=== PATIENT | female | born 1970 | race Caucasian/White ===

== ENCOUNTER 2019-10-09 08:51 | Emergency (ER) | payer MEDICAID, SELFPAY ==
[~2019-10-09] VITALS: Ht 160 cm; Wt 76.1 kg
[2019-10-09] MEDS ORDERED: ADENOSINE 6MG/2ML INJECTION (J0153) As Ordered ONE (09:16)
[2019-10-09] MEDS ORDERED: ADENOSINE 6MG/2ML INJECTION (J0153) IV STA (09:23)
[2019-10-09] MEDS ORDERED: NS 500 ML IV ONE (09:30)
[2019-10-09 09:33] LABS: BASO # 0.1 10^3/uL (0.0-0.2); BASO % 0.6 % (0.0-1.0); EOS # 0.3 10^3/uL (0.0-0.5); EOS % 2.3 % (0.0-3.0); HEMATOCRIT 44.5 % (36.0-47.0); HEMOGLOBIN 14.6 g/dl (12.0-15.5); LYMPH # 3.8 10^3/uL (1.5-5.0); LYMPH % 26.6 % (24.0-44.0); MEAN CORPUSCULAR HEMOGLOBIN 31.2 pg (27.0-33.0); MEAN CORPUSCULAR HGB CONC 32.8 g/dl (32.0-36.5); MEAN CORPUSCULAR VOLUME 95.1 fl (80.0-96.0); MONO % 6.7 % (0.0-5.0); NEUTROPHILS % 63.4 % (36.0-66.0); PLATELET COUNT, AUTOMATED 316 10^3/uL (150-450); RED BLOOD COUNT 4.68 10^6/uL (4.00-5.40); WHITE BLOOD COUNT 14.2 10^3/uL (4.0-10.0)
[2019-10-09 09:43] LABS: INR 0.91
[2019-10-09 09:44] LABS: PARTIAL THROMBOPLASTIN TIME 29.6 SECONDS (25.0-38.4)
[2019-10-09 09:56] LABS: BLOOD UREA NITROGEN 14 MG/DL (7-18); CALCIUM LEVEL 8.4 MG/DL (8.5-10.1); CARBON DIOXIDE LEVEL 22 MEQ/L (21-32); CHLORIDE LEVEL 111 MEQ/L (98-107); CK-MB VALUE MASS 1.4 NG/ML (<3.6); CPK CREATINE PHOSPHOKINASE 174 U/L (26-192); CREATININE FOR GFR 0.98 MG/DL (0.55-1.30); FREE T4 1.03 NG/DL (0.76-1.46); GLOMERULAR FILTRATION RATE > 60.0 (>51); GLUCOSE, FASTING 114 MG/DL (70-100); POTASSIUM SERUM 3.7 MEQ/L (3.5-5.1); SODIUM LEVEL 144 MEQ/L (136-145); TROPONIN I 0.02 NG/ML (< 0.10)
--- NOTE | 2019-10-09 10:16 | REP ---
AP PORTABLE CHEST: 10/09/2019. Clinical history: Chest pain. Tachycardia. Findings: There were no prior studies. The lungs are well inflated and clear. CP angles sharply defined without effusion. No cardiomegaly, vascular redistribution or pulmonary edema. The aorta is mildly tortuous, but normal for age. Airway midline. C5-C7 anterior cervical discectomy and fusion plate and screw device is noted. No free air under the diaphragm. Impression: 1. No acute cardiopulmonary change. Electronically Signed by Ravi Kim MD 10/09/2019 08:20 P
[2019-10-09 12:50] LABS: CK-MB VALUE MASS 1.6 NG/ML (<3.6); MB/CK RELATIVE INDEX 1.09 (< OR =4); TROPONIN I 0.2 NG/ML (< 0.10)
[2019-10-09 13:15] VITALS: BP 135/92
[2019-10-09] MEDS ORDERED: atenoloL 25 MG TAB PO ONE (13:15)
[2019-10-09] MEDS ORDERED: ASPIRIN 81 MG CHEW TABLET PO ONE (13:15)
[2019-10-09 15:14] LABS: CK-MB VALUE MASS 1.6 NG/ML (<3.6); MB/CK RELATIVE INDEX 1.13 (< OR =4); TROPONIN I 0.2 NG/ML (< 0.10)
[2019-10-09] MEDS ORDERED: ATEN25TA PO (15:29)
[2019-10-09] MEDS ORDERED: ASPI81TA85 PO (15:29)
[2019-10-09 15:38] VITALS: BP 132/92
--- NOTE | 2019-10-09 19:22 | ECGEPIP ---
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
--- NOTE | 2019-10-09 19:29 | ECGEPIP ---
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
--- NOTE | 2019-10-09 19:31 | ECGEPIP ---
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
== END 2019-10-09 15:45 | disposition home or self-care (01) ==
LOC: M ED 08:51
DX: I47.1 Supraventricular tachycardia (principal); R07.9 Chest pain, unspecified; F41.9 Anxiety disorder, unspecified; Z79.82 Long term (current) use of aspirin; Z79.899 Other long term (current) drug therapy; Z87.39 Personal history of other diseases of the musculoskeletal system and connective tissue
CPT/HCPCS: 36415; 71045; 80048; 82550; 82553; 84439; 84443; 85025; 85610; 85730; 93005; 93041; 94760; 96361; 96374; 99285; J0153

== ENCOUNTER → 2019-10-27 | Outpatient (CLI) | payer MEDICAID ==
[~2019-10-27] MED LIST: ASPI81TA85 PO; ATEN25TA PO
[2019-10-27 12:05] LABS: CHOLESTEROL RISK RATIO 3.194 (<5)
== END ==
LOC: M LRY 09:00
PROVIDERS: ATTEND Internal Medicine Cardiovascular Disease
DX: Z68.30 Body mass index [BMI] 30.0-30.9, adult (principal)

== ENCOUNTER → 2020-07-25 | Outpatient (CLI) | payer MEDICAID, OTHER ==
[~2020-07-25] MED LIST changes: -ASPI81TA85 PO; +ASPI81TA86 PO; +BENA25CA4 PO; +CLAR10CA3 PO; +IMIT50TA PO; +PREV15CA18 PO
== END ==
LOC: M LABSMTC 10:16
PROVIDERS: ATTEND Anesthesiology
DX: Z01.812 Encounter for preprocedural laboratory examination (principal); Z20.828 Contact with and (suspected) exposure to other viral communicable diseases

== ENCOUNTER 2020-07-30 09:48 | Day surgery (SDC) | payer OTHER ==
[~2020-07-30] VITALS: Ht 160 cm; Wt 58.5 kg
[~2020-07-30 09:48] MED LIST changes: +NS 1,000 ML IV ONE
[2020-07-30] MEDS ORDERED: propofoL 500 MG/50 ML VIAL As Ordered ONE ×2 (10:25→10:52)
[2020-07-30] MEDS ORDERED: LIDOCAINE 2% 100MG/5ML SDV (FOR ANES.) As Ordered ONE (10:25)
[2020-07-30] MEDS ORDERED: fentaNYL 100 MCG/2 ML INJECTION (J3010) As Ordered ONE (10:25)
--- NOTE | 2020-07-30 11:25 | ROOR ---
Patient Name: Dolores Mendez Procedure Date: 07/30/2020 10:21 AM Date of : 1970 Age: 50 Room: [facility] Gender: Female Note Status: Finalized Procedure: Upper GI endoscopy Indications: Heartburn, Suspected gastro-esophageal reflux disease Providers: George Roy MD Referring MD: Cris Payne Md Requesting Provider: Medicines: Monitored Anesthesia Care Complications: No immediate complications. Procedure: Pre-Anesthesia Assessment: - Prior to the procedure, a History and Physical was performed, and patient medications and allergies were reviewed. The patient is competent. The risks and benefits of the procedure and the sedation options and risks were discussed with the patient. All questions were answered and informed consent was obtained. Patient identification and proposed procedure were verified by the physician, the nurse and the anesthesiologist in the procedure room. Mental Status Examination: alert and oriented. Airway Examination: normal oropharyngeal airway and neck mobility. Respiratory Examination: clear to auscultation. CV Examination: normal. Prophylactic Antibiotics: The patient does not require prophylactic antibiotics. Prior Anticoagulants: The patient has taken no previous anticoagulant or antiplatelet agents. ASA Grade Assessment: II - A patient with mild systemic disease. After reviewing the risks and benefits, the patient was deemed in satisfactory condition to undergo the procedure. The anesthesia plan was to use monitored anesthesia care (MAC). Immediately prior to administration of medications, the patient was re-assessed for adequacy to receive sedatives. The heart rate, respiratory rate, oxygen saturations, blood pressure, adequacy of pulmonary ventilation, and response to care were monitored throughout the procedure. The physical status of the patient was re-assessed after the procedure. The Endoscope was introduced through the mouth, and advanced to the second part of duodenum. The upper GI endoscopy was accomplished without difficulty. The patient tolerated the procedure well. Findings: LA Grade A (one or more mucosal breaks less than 5 mm, not extending between tops of 2 mucosal folds) esophagitis with no bleeding was found in the distal esophagus. Biopsies were taken with a cold forceps for histology. Verification of patient identification for the specimen was done by the physician and nurse using the patient's name, date and medical record number. Estimated blood loss was minimal. The Z-line was regular and was found 37 cm from the incisors. Scattered mild inflammation characterized by erythema and granularity was found in the gastric body and in the gastric antrum. Biopsies were taken with a cold forceps for histology. The duodenal bulb and second portion of the duodenum were normal. Impression: - LA Grade A reflux esophagitis. Biopsied. - Z-line regular, 37 cm from the incisors. - Gastritis. Biopsied. - Normal duodenal bulb and second portion of the duodenum. Recommendation: - Patient has a contact number available for emergencies. The signs and symptoms of potential delayed complications were discussed with the patient. Return to normal activities tomorrow. Written discharge instructions were provided to the patient. - High fiber diet. - Continue present medications. - Await pathology results. - Follow an antireflux regimen. - Telephone GI clinic for pathology results in 2 weeks. - Return to primary care physician. George Roy MD George Roy MD 07/30/2020 11:24:37 AM Electronically signed by George Roy MD Number of Addenda: 0 Note Initiated On: 07/30/2020 10:21 AM Estimated Blood Loss: Estimated blood loss was minimal.
--- NOTE | 2020-07-30 11:42 | ROOR ---
Patient Name: Dolores Mendez Procedure Date: 07/30/2020 10:22 AM Date of : 1970 Age: 50 Room: [facility] Gender: Female Note Status: Finalized Procedure: Colonoscopy Indications: Screening for colorectal malignant neoplasm, Screening in patient at increased risk: Family history of 1st-degree relative with colorectal cancer Providers: George Roy MD Referring MD: Cris Payne Md Requesting Provider: Medicines: Monitored Anesthesia Care Complications: No immediate complications. Procedure: Pre-Anesthesia Assessment: - Prior to the procedure, a History and Physical was performed, and patient medications and allergies were reviewed. The patient is competent. The risks and benefits of the procedure and the sedation options and risks were discussed with the patient. All questions were answered and informed consent was obtained. Patient identification and proposed procedure were verified by the physician, the nurse and the anesthesiologist in the procedure room. Mental Status Examination: alert and oriented. Airway Examination: normal oropharyngeal airway and neck mobility. Respiratory Examination: clear to auscultation. CV Examination: normal. Prophylactic Antibiotics: The patient does not require prophylactic antibiotics. Prior Anticoagulants: The patient has taken no previous anticoagulant or antiplatelet agents. ASA Grade Assessment: II - A patient with mild systemic disease. After reviewing the risks and benefits, the patient was deemed in satisfactory condition to undergo the procedure. The anesthesia plan was to use monitored anesthesia care (MAC). Immediately prior to administration of medications, the patient was re-assessed for adequacy to receive sedatives. The heart rate, respiratory rate, oxygen saturations, blood pressure, adequacy of pulmonary ventilation, and response to care were monitored throughout the procedure. The physical status of the patient was re-assessed after the procedure. The Colonoscope was introduced through the anus and advanced to the terminal ileum, with identification of the appendiceal orifice and IC valve. The colonoscopy was performed without difficulty. The patient tolerated the procedure well. The quality of the bowel preparation was good. The terminal ileum, ileocecal valve, appendiceal orifice, and rectum were photographed. Scope insertion time was 3 minutes. Scope withdrawal time was 9 minutes. The total duration of the procedure was 12 minutes. Findings: The perianal and digital rectal examinations were normal. The terminal ileum appeared normal. A 10 mm polyp was found in the descending colon. The polyp was sessile. The polyp was removed with a cold snare. Resection and retrieval were complete. Verification of patient identification for the specimen was done by the physician and nurse using the patient's name, date and medical record number. Estimated blood loss was minimal. Non-bleeding external and internal hemorrhoids were found during retroflexion. The hemorrhoids were small. Impression: - The examined portion of the ileum was normal. - One 10 mm polyp in the descending colon, removed with a cold snare. Resected and retrieved. - Non-bleeding external and internal hemorrhoids. Recommendation: - Patient has a contact number available for emergencies. The signs and symptoms of potential delayed complications were discussed with the patient. Return to normal activities tomorrow. Written discharge instructions were provided to the patient. - High fiber diet. - Continue present medications. - Await pathology results. - Repeat colonoscopy in 3 - 5 years for surveillance based on pathology results and due to family history of colon cancer. - Telephone GI clinic for pathology results in 2 weeks. - Return to primary care physician. George Roy MD George Roy MD 07/30/2020 11:41:30 AM Electronically signed by George Roy MD Number of Addenda: 0 Note Initiated On: 07/30/2020 10:22 AM Estimated Blood Loss: Estimated blood loss was minimal.
[2020-07-30 11:45] VITALS: BP 129/90
[2020-07-30] MEDS ORDERED: SIMETHICONE 40MG/0.6ML DROPS 30ML As Ordered ONE ×2 (15:17→15:18)
== END 2020-07-30 11:49 | disposition home or self-care (01) ==
LOC: M OPP 09:48
PROVIDERS: ATTEND Internal Medicine Gastroenterology
DX: Z12.11 Encounter for screening for malignant neoplasm of colon (principal); Z80.0 Family history of malignant neoplasm of digestive organs; K64.8 Other hemorrhoids; K63.5 Polyp of colon; K21.00 Gastro-esophageal reflux disease with esophagitis, without bleeding; K29.70 Gastritis, unspecified, without bleeding; R12 Heartburn; F17.210 Nicotine dependence, cigarettes, uncomplicated; Z79.899 Other long term (current) drug therapy; Z91.012 Allergy to eggs; Z91.018 Allergy to other foods
CPT/HCPCS: 43239; 45385; 88305; J3010

== ENCOUNTER → 2021-03-13 | Outpatient (CLI) | payer MEDICAID, OTHER ==
[~2021-03-13] MED LIST changes: -NS 1,000 ML IV ONE; -PREV15CA18 PO; +PREV15CA24 PO
[2021-03-13 11:47] LABS: HEMATOCRIT 42.9 % (36.0-47.0); HEMOGLOBIN 14.1 g/dl (12.0-15.5); MEAN CORPUSCULAR HEMOGLOBIN 31.9 pg (27.0-33.0); MEAN CORPUSCULAR HGB CONC 32.9 g/dl (32.0-36.5); MEAN CORPUSCULAR VOLUME 97.1 fl (80.0-96.0); PLATELET COUNT, AUTOMATED 278 10^3/uL (150-450); RED BLOOD COUNT 4.42 10^6/uL (4.00-5.40); WHITE BLOOD COUNT 8.4 10^3/uL (4.0-10.0)
== END ==
LOC: M LAB 11:17
PROVIDERS: ATTEND Physician Assistant Medical
DX: R19.7 Diarrhea, unspecified (principal)

== ENCOUNTER → 2021-03-19 | Outpatient (REF) | payer OTHER | LOC: M LAB REF 09:23 | PROVIDERS: ATTEND Physician Assistant Medical | DX: R19.7 Diarrhea, unspecified (principal) ==

== ENCOUNTER → 2021-04-05 | Outpatient (CLI) | payer OTHER ==
[~2021-04-05] MED LIST changes: +GLUCAGON INJ 1MG VIAL As Ordered ONE; +ISOVUE-370 76% 100ML VIAL As Ordered ONE; +NEULUMEX 0.1% SUSPENSION 450ML BOTTLE (FORMERLY VOLUMEN) As Ordered ONE
--- NOTE | 2021-04-05 13:20 | REP ---
INDICATION: LOWER ABDOMINAL PAIN, DIARRHEA. COMPARISON: None. TECHNIQUE: Protocol with dilute oral contrast Volumen totaling 1350 mL over 3 doses, glucagon 0.6 mg IV and finding Isovue 371 mL scanning through the abdomen and pelvis with delayed images. Coronal and sagittal standard and MIP reformats in arterial and venous phases provided FINDINGS: CT abdomen pelvis: Lung bases are clear. Heart is not enlarged there is no pericardial thickening or effusion. Small hiatal hernia suggested. Stomach filled with the contrast but oral contrast also seen throughout the small bowel loops and colon as far as the rectosigmoid. Liver size borderline with vertical diameter nearly 18 cm midclavicular line. No focal hepatic mass or biliary dilatation. Gallbladder partially contracted without calcified stone visible. Spleen is not enlarged and shows no adjacent fluid or mass within. The adrenal glands are normal. Kidneys show symmetric enhancement without mass, stone or hydronephrosis. There is no hydroureter or ureteral stone on either side. The aorta is without aneurysm or dissection. No periaortic, other retroperitoneal or mesenteric pathologic sized lymphadenopathy. Stool and fluid fill the right colon without inflammatory change. There is gas and bowel content across both flexures and transverse colon into the left colon with the fluid and air-fluid levels but no dilatation. Small bowel loops show no bowel wall thickening of the proximal to terminal ileum. No adjacent inflammatory changes pericecal fat nor pericecal adenopathy. Appendix is seen and is normal. Jejunum shows mid to distal loops unremarkable. There is nonspecific mild wall thickening proximal jejunal bowel wall without adjacent inflammatory change or mesenteric edema. This is a nonspecific finding. The bone windows show lumbar and lower thoracic spine and their posterior elements normal for age. Visualized ribs were unremarkable. CT pelvis: Sacrum, SI joints, iliac bones and hips show minor degenerative changes without destructive lesions. There is a bone cyst in the posterior column of the right iliac bone is a benign finding. There is a bone island also in that same posterior column. The distal left colon sigmoid and rectum show no wall thickening, pericolonic inflammatory change, stricture, mass or sign of colitis/diverticulitis. Uterus is absent, the vaginal cuff intact. No pelvic mass. Bladder well distended and without mass, wall thickening or stone. No distal hydroureter or ureteral stone. No ventral or inguinal hernia, inguinal adenopathy or other acute finding. IMPRESSION: 1. No evidence of the bowel wall thickening or edema adjacent to the terminal ileum. Appendix seen and normal the cecum unremarkable 2. The proximal to mid ileum, mid to distal jejunum in the entire colon was without inflammatory change or bowel wall thickening. 3. There is some mild the nonspecific thickening of the bowel wall of proximal loops of jejunum in the left upper quadrant. No inflammatory changes in the adjacent mesenteric fat no mesenteric adenopathy. No ascites, perforation or free air. Nothing acute. <Electronically signed by Ravi Kim > 04/05/21 [id number]
== END ==
LOC: M RAD 09:57
PROVIDERS: ATTEND Physician Assistant Medical
DX: R10.30 Lower abdominal pain, unspecified (principal)
CPT/HCPCS: 74177; J1610; Q9967

== ENCOUNTER → 2021-11-25 | Outpatient (CLI) | payer MEDICAID, OTHER ==
[~2021-11-25] MED LIST changes: +DIPH2.5T15 PO; -GLUCAGON INJ 1MG VIAL As Ordered ONE; -ISOVUE-370 76% 100ML VIAL As Ordered ONE; +LANS-67 PO; -NEULUMEX 0.1% SUSPENSION 450ML BOTTLE (FORMERLY VOLUMEN) As Ordered ONE; +TUMS500C PO
== END ==
LOC: M LABSMTC 10:13
PROVIDERS: ATTEND Anesthesiology
DX: Z01.812 Encounter for preprocedural laboratory examination (principal); Z20.822 Contact with and (suspected) exposure to COVID-19

== ENCOUNTER 2021-11-29 08:25 | Day surgery (SDC) | payer OTHER ==
[~2021-11-29] VITALS: Ht 160 cm; Wt 82.6 kg
[~2021-11-29 08:25] MED LIST changes: +LIDOCAINE 2% 100MG/5ML SDV (FOR ANES.) As Ordered ONE; +NS 1,000 ML IV ONE; +propofoL 200 MG/20 ML VIAL As Ordered ONE
[2021-11-29] MEDS ORDERED: propofoL 200 MG/20 ML VIAL As Ordered ONE (09:45)
[2021-11-29 10:21] VITALS: BP 139/102
== END 2021-11-29 10:30 | disposition home or self-care (01) ==
LOC: M OPP 08:25
PROVIDERS: ATTEND Internal Medicine Gastroenterology
DX: K64.8 Other hemorrhoids (principal); K52.9 Noninfective gastroenteritis and colitis, unspecified; Q43.8 Other specified congenital malformations of intestine

== ENCOUNTER → 2022-01-14 | Outpatient (CLI) | payer OTHER ==
[~2022-01-14] MED LIST changes: -LIDOCAINE 2% 100MG/5ML SDV (FOR ANES.) As Ordered ONE; -NS 1,000 ML IV ONE; -propofoL 200 MG/20 ML VIAL As Ordered ONE
== END ==
LOC: M RAD 06:33
PROVIDERS: ATTEND Family Medicine
DX: Z12.2 Encounter for screening for malignant neoplasm of respiratory organs (principal); F17.210 Nicotine dependence, cigarettes, uncomplicated; R91.8 Other nonspecific abnormal finding of lung field

== ENCOUNTER → 2022-03-28 | Outpatient (CLI) | payer OTHER | LOC: M RAD 12:29 | PROVIDERS: ATTEND Physician Assistant Medical | DX: Z53.9 Procedure and treatment not carried out, unspecified reason (principal) ==

== ENCOUNTER → 2022-03-31 | Outpatient (CLI) | payer OTHER | LOC: M WHC 15:00 | PROVIDERS: ATTEND Family Medicine | DX: Z12.31 Encounter for screening mammogram for malignant neoplasm of breast (principal) ==

== ENCOUNTER → 2022-05-30 | Outpatient (CLI) | payer OTHER ==
[2022-05-30 11:59] LABS: BASO # 0.1 10^3/uL (0.0-0.2); EOS # 0.7 10^3/uL (0.0-0.5); EOS % 8.7 % (0.0-3.0); HEMOGLOBIN 13.9 g/dl (12.0-15.5); LYMPH % 36.4 % (24.0-44.0); MEAN CORPUSCULAR HGB CONC 33.1 g/dl (32.0-36.5); MEAN CORPUSCULAR VOLUME 96.8 fl (80.0-96.0); MONO # 0.6 10^3/uL (0.0-0.8); MONO % 6.7 % (2.0-8.0); NEUTROPHILS # 3.9 10^3/uL (1.5-8.5); PLATELET COUNT, AUTOMATED 256 10^3/uL (150-450); RED BLOOD COUNT 4.34 10^6/uL (4.00-5.40); WHITE BLOOD COUNT 8.4 10^3/uL (4.0-10.0)
[2022-05-30 12:29] LABS: BLOOD UREA NITROGEN 18 MG/DL (7-18); CALCIUM LEVEL 9.4 MG/DL (8.5-10.1); CARBON DIOXIDE LEVEL 28 MEQ/L (21-32); CHLORIDE LEVEL 105 MEQ/L (98-107); CREATININE FOR GFR 0.86 MG/DL (0.55-1.30); GLOMERULAR FILTRATION RATE > 60.0 (>51); GLUCOSE, FASTING 110 MG/DL (70-100); POTASSIUM SERUM 4.3 MEQ/L (3.5-5.1); SODIUM LEVEL 139 MEQ/L (136-145)
== END ==
LOC: M LAB 11:17
PROVIDERS: ATTEND Internal Medicine Gastroenterology
DX: R19.7 Diarrhea, unspecified (principal); K62.5 Hemorrhage of anus and rectum

== ENCOUNTER → 2022-06-03 | Outpatient (REF) | payer OTHER | LOC: M LAB REF 09:34 | PROVIDERS: ATTEND Internal Medicine Gastroenterology | DX: R19.7 Diarrhea, unspecified (principal); K62.5 Hemorrhage of anus and rectum ==

== ENCOUNTER → 2023-12-24 | Outpatient (CLI) | payer OTHER ==
[~2023-12-24] MED LIST changes: +DIPH1TAB81 PO; -DIPH2.5T15 PO
== END ==
LOC: M SLEEP HO 10:55
PROVIDERS: ATTEND Family Medicine
DX: G47.33 Obstructive sleep apnea (adult) (pediatric) (principal)

== ENCOUNTER 2024-03-04 20:39 | Emergency (ER) | payer OTHER ==
[~2024-03-04] VITALS: Ht 160 cm; Wt 87.6 kg
[2024-03-04 21:08] LABS: BASO # 0.1 10^3/uL (0.0-0.2); BASO % 0.8 % (0.0-1.0); EOS # 0.5 10^3/uL (0.0-0.5); EOS % 6.3 % (0.0-3.0); HEMATOCRIT 43.5 % (36.0-47.0); HEMOGLOBIN 14.7 g/dl (12.0-15.5); LYMPH # 2.2 10^3/uL (1.5-5.0); MEAN CORPUSCULAR HEMOGLOBIN 31.9 pg (27.0-33.0); MEAN CORPUSCULAR HGB CONC 33.8 g/dl (32.0-36.5); MEAN CORPUSCULAR VOLUME 94.4 fl (80.0-96.0); MONO # 0.5 10^3/uL (0.0-0.8); MONO % 5.5 % (2.0-8.0); PLATELET COUNT, AUTOMATED 259 10^3/uL (150-450); RED BLOOD COUNT 4.61 10^6/uL (4.00-5.40); WHITE BLOOD COUNT 8.3 10^3/uL (4.0-10.0)
[2024-03-04 21:21] LABS: INR 0.9; PARTIAL THROMBOPLASTIN TIME 29.3 SECONDS (24.8-34.2); PROTHROMBIN TIME 11.9 SECONDS (12.5-14.5)
[2024-03-04 21:32] LABS: CK-MB VALUE MASS 2.8 NG/ML (<3.6); CPK CREATINE PHOSPHOKINASE 97 U/L (34-145); MB/CK RELATIVE INDEX 2.88 (< OR =4)
[2024-03-04 21:33] LABS: BLOOD UREA NITROGEN 21 MG/DL (9-23); CALCIUM LEVEL 9.7 MG/DL (8.5-10.1); CARBON DIOXIDE LEVEL 25 MMOL/L (20-31); CHLORIDE LEVEL 104 MMOL/L (98-107); CREATININE FOR GFR 0.78 MG/DL (0.55-1.30); GLOMERULAR FILTRATION RATE > 60.0 (>51); GLUCOSE, FASTING 144 MG/DL (60-100); POTASSIUM SERUM 3.8 MMOL/L (3.5-5.1); SODIUM LEVEL 138 MMOL/L (136-145)
[2024-03-04] MEDS: MORPHINE 4 MG/ML 1ML VIAL IV PRN (21:39)
[2024-03-04] MEDS: ONDANSETRON 4MG 2ML VIAL IV ONE (21:39)
[2024-03-04 22:03] LABS: ETHYL ALCOHOL (ETHANOL) < 0.003 % (0.000-0.010)
[2024-03-04] MEDS ORDERED: ISOVUE-370 76% 100ML VIAL As Ordered ONE (22:06)
[2024-03-04 22:53] VITALS: BP 158/106
[2024-03-04] MEDS: NITROGLYCERIN 2% OINT 1 GM *U/D* PKT TOP ONE (22:53)
[2024-03-04 22:57] LABS: CK-MB VALUE MASS 5.5 NG/ML (<3.6); MB/CK RELATIVE INDEX 5.04 (< OR =4)
[2024-03-04] MEDS ORDERED: HEPARIN SOD (PORCINE) 5000UNITS/ML 1ML VIAL/SYRINGE IV PRN (23:10)
[2024-03-04] MEDS: HEPARIN SOD (PORCINE) 5000UNITS/ML 1ML VIAL/SYRINGE IV ONE (23:38)
[2024-03-04] MEDS: HEPARIN DRIP 25,000 UNITS in IV 1 EA IV SCH (23:40)
[2024-03-04] MEDS ORDERED: NITROGLYCERIN/D5W 100MCG/ML 25 MG in IV 1 EA IV SCH (23:40)
[2024-03-05] MEDS: fentaNYL 100 MCG/2 ML INJECTION IV ONE ×2 (02:17→03:32)
[2024-03-05 03:32] VITALS: BP 140/101; TEMP 97.7; O2SAT 95
== END 2024-03-05 03:34 | disposition short-term general hospital (02) ==
LOC: M ED 20:39 → EDBD 20:39 → M ED 03-05 03:34
DX: I21.4 Non-ST elevation (NSTEMI) myocardial infarction (principal); K21.9 Gastro-esophageal reflux disease without esophagitis; F17.290 Nicotine dependence, other tobacco product, uncomplicated; F12.10 Cannabis abuse, uncomplicated; F10.10 Alcohol abuse, uncomplicated; Z79.899 Other long term (current) drug therapy
CPT/HCPCS: 71045; 71275; 80048; 82077; 82550; 82553; 83880; 84484; 85025; 85610; 85730; 93005; 93041; 94760; 96365; 96366; 96374; 96375; 96376; 99285; J2405; J3010; Q9967

== ENCOUNTER → 2024-06-21 | Outpatient (CLI) | payer OTHER ==
[2024-06-21 13:05] LABS: BLOOD UREA NITROGEN 20 MG/DL (9-23); CALCIUM LEVEL 9.8 MG/DL (8.5-10.1); CARBON DIOXIDE LEVEL 27 MMOL/L (20-31); CHLORIDE LEVEL 103 MMOL/L (98-107); CREATININE FOR GFR 0.83 MG/DL (0.55-1.30); GLOMERULAR FILTRATION RATE > 60.0 (>51); GLUCOSE, FASTING 111 MG/DL (60-100); POTASSIUM SERUM 4.3 MMOL/L (3.5-5.1); SODIUM LEVEL 135 MMOL/L (136-145)
== END ==
LOC: M LAB 12:09
PROVIDERS: ATTEND Internal Medicine Cardiovascular Disease
DX: Z00.00 Encounter for general adult medical examination without abnormal findings (principal); I51.81 Takotsubo syndrome

== ENCOUNTER 2024-12-01 09:51 | Emergency (ER) | payer OTHER ==
[~2024-12-01] VITALS: Ht 160 cm; Wt 82.3 kg
[2024-12-01] MEDS: NS 500 ML IV ONE (10:05)
[2024-12-01 10:26] LABS: BASO # 0.1 10^3/uL (0.0-0.2); BASO % 0.6 % (0.0-1.0); EOS # 0.6 10^3/uL (0.0-0.5); EOS % 4.1 % (0.0-3.0); HEMATOCRIT 45.5 % (36.0-47.0); LYMPH # 6.3 10^3/uL (1.5-5.0); LYMPH % 46.1 % (24.0-44.0); MEAN CORPUSCULAR HEMOGLOBIN 29.5 pg (27.0-33.0); MEAN CORPUSCULAR VOLUME 89.6 fl (80.0-96.0); MONO % 7.2 % (2.0-8.0); NEUTROPHILS # 5.7 10^3/uL (1.5-8.5); NEUTROPHILS % 41.7 % (36.0-66.0); PLATELET COUNT, AUTOMATED 329 10^3/uL (150-450); RED BLOOD COUNT 5.08 10^6/uL (4.00-5.40); WHITE BLOOD COUNT 13.6 10^3/uL (4.0-10.0)
[2024-12-01 10:49] LABS: CK-MB VALUE MASS < 1.0 NG/ML (<3.6); LIPASE 42 U/L (12-53)
[2024-12-01 10:51] LABS: ALKALINE PHOSPHATASE 61 U/L (35-104); ALT/SGPT 27 U/L (7.0-40); AST/SGOT 24 U/L (<34); BILIRUBIN,DIRECT < 0.1 MG/DL (<0.4); BILIRUBIN,TOTAL 0.4 MG/DL (0.3-1.2); BLOOD UREA NITROGEN 22 MG/DL (9-23); CALCIUM LEVEL 9.7 MG/DL (8.5-10.1); CARBON DIOXIDE LEVEL 23 MMOL/L (20-31); CHLORIDE LEVEL 105 MMOL/L (98-107); CREATININE FOR GFR 0.76 MG/DL (0.55-1.30); GLOMERULAR FILTRATION RATE > 60.0 (>51); GLUCOSE, FASTING 135 MG/DL (60-100); POTASSIUM SERUM 4.4 MMOL/L (3.5-5.1); SODIUM LEVEL 142 MMOL/L (136-145); TOTAL PROTEIN 7.7 G/DL (5.7-8.2)
[2024-12-01 10:52] LABS: THYROID STIMULATING HORMONE 1.597 uIU/ML (0.55-4.78)
[2024-12-01 10:53] LABS: FREE T4 0.98 NG/DL (0.89-1.76)
[2024-12-01 10:58] LABS: CPK CREATINE PHOSPHOKINASE 111 U/L (34-145)
[2024-12-01 11:52] LABS: CK-MB VALUE MASS < 1.0 NG/ML (<3.6); CPK CREATINE PHOSPHOKINASE 85 U/L (34-145); MB/CK RELATIVE INDEX 1.17 (< OR =4)
[2024-12-01 13:46] LABS: CK-MB VALUE MASS 1.4 NG/ML (<3.6)
[2024-12-01 13:58] LABS: MB/CK RELATIVE INDEX 1.57 (< OR =4)
[2024-12-01] MEDS: ASPIRIN 81MG CHEW TABLET PO ONE (14:43)
[2024-12-01] MEDS: HEPARIN SOD (PORCINE) 5000UNITS/ML 1ML VIAL/SYRINGE IV ONE (14:44)
[2024-12-01] MEDS: HEPARIN DRIP 25,000 UNITS in IV 1 EA IV SCH (14:45)
[2024-12-01 15:05] LABS: INR 0.86; PARTIAL THROMBOPLASTIN TIME 29.5 SECONDS (24.8-34.2); PROTHROMBIN TIME 12.1 SECONDS (12.5-14.5)
[2024-12-01] MEDS: LORazepam 2 MG/ML 1ML VIAL IV STA (16:18)
[2024-12-01 16:28] VITALS: BP 131/88
[2024-12-01] MEDS: LORazepam 0.5 MG TAB PO STA (16:28)
[2024-12-01] MEDS: METOPROLOL TART 25 MG TABLET PO ONE (16:28)
[2024-12-01 16:30] VITALS: BP 138/89; TEMP 97.9; O2SAT 100
== END 2024-12-01 16:42 | disposition short-term general hospital (02) ==
LOC: M ED 09:51
DX: I47.10 Supraventricular tachycardia, unspecified (principal); I45.19 Other right bundle-branch block; F10.10 Alcohol abuse, uncomplicated; Z87.891 Personal history of nicotine dependence; Z79.899 Other long term (current) drug therapy
CPT/HCPCS: 71045; 80047; 80048; 80076; 82550; 82553; 83690; 84439; 84443; 84484; 85025; 85610; 85730; 93005; 93041; 94760; 96361; 96374; 96375; 99285; J0153

== ENCOUNTER → 2025-01-20 | Outpatient (CLI) | payer OTHER ==
[2025-01-20 07:15] LABS: BASO # 0.1 10^3/uL (0.0-0.2); EOS # 0.5 10^3/uL (0.0-0.5); EOS % 7.2 % (0.0-3.0); HEMATOCRIT 42.6 % (36.0-47.0); LYMPH # 2.8 10^3/uL (1.5-5.0); LYMPH % 38.2 % (24.0-44.0); MEAN CORPUSCULAR HEMOGLOBIN 29.4 pg (27.0-33.0); MEAN CORPUSCULAR HGB CONC 32.9 g/dl (32.0-36.5); MEAN CORPUSCULAR VOLUME 89.3 fl (80.0-96.0); MONO # 0.6 10^3/uL (0.0-0.8); MONO % 7.6 % (2.0-8.0); NEUTROPHILS # 3.3 10^3/uL (1.5-8.5); NEUTROPHILS % 45.7 % (36.0-66.0); PLATELET COUNT, AUTOMATED 260 10^3/uL (150-450); RED BLOOD COUNT 4.77 10^6/uL (4.00-5.40); WHITE BLOOD COUNT 7.3 10^3/uL (4.0-10.0)
[2025-01-20 07:39] LABS: ALBUMIN 3.9 G/DL (3.2-5.2); BILIRUBIN,TOTAL 0.7 MG/DL (0.3-1.2); CALCIUM LEVEL 9.5 MG/DL (8.5-10.1); CHOLESTEROL RISK RATIO 4.96 (<5); CREATININE FOR GFR 0.82 MG/DL (0.55-1.30); GLOMERULAR FILTRATION RATE 83.9 (>51); HDL CHOLESTEROL 51.4 MG/DL (>40); LDL CHOLESTEROL 148.6 MG/DL (<100); NON-HDL-C 203.6 MG/DL; POTASSIUM SERUM 4.2 MMOL/L (3.5-5.1)
[2025-01-20 07:40] LABS: THYROID STIMULATING HORMONE 2.077 uIU/ML (0.55-4.78)
[2025-01-20 07:41] LABS: TOTAL 25(OH) VITAMIN D 18.7 NG/ML (20.0-100.0)
[2025-01-20 07:46] LABS: HEMOGLOBIN A1c 5.6 % (4.0-6.0)
== END ==
LOC: M LAB 06:31
DX: I47.10 Supraventricular tachycardia, unspecified (principal)

== ENCOUNTER 2025-03-29 15:10 | Emergency (ER) | payer OTHER ==
[~2025-03-29] VITALS: Ht 160 cm; Wt 86.9 kg
[~2025-03-29 15:10] MED LIST changes: +ATOR40TA75 PO; +FEXO-63 PO; +LANS30CA PO; +LOSA25TA13 PO; +METO1TAB32 PO
[2025-03-29 15:49] LABS: BASO # 0.1 10^3/uL (0.0-0.2); BASO % 0.7 % (0.0-1.0); EOS # 0.4 10^3/uL (0.0-0.5); EOS % 4.9 % (0.0-3.0); LYMPH # 4.8 10^3/uL (1.5-5.0); LYMPH % 58.0 % (24.0-44.0); MONO # 0.6 10^3/uL (0.0-0.8); MONO % 7.4 % (2.0-8.0); NEUTROPHILS # 2.4 10^3/uL (1.5-8.5); NEUTROPHILS % 28.8 % (36.0-66.0); PLATELET COUNT, AUTOMATED 261 10^3/uL (150-450)
[2025-03-29 16:18] LABS: CALCIUM LEVEL 9.3 MG/DL (8.5-10.1); CARBON DIOXIDE LEVEL 28.0 MMOL/L (20-31); CHLORIDE LEVEL 102.0 MMOL/L (98-107); CREATININE FOR GFR 1.06 MG/DL (0.55-1.30); GLOMERULAR FILTRATION RATE 61.7 (>51); MAGNESIUM LEVEL 1.9 MG/DL (1.8-2.4); POTASSIUM SERUM 4.0 MMOL/L (3.5-5.1); SODIUM LEVEL 143.0 MMOL/L (136-145)
[2025-03-29] MEDS ORDERED: HOME MED LIST COMPLETE! XX SCH (16:30)
[2025-03-29] MEDS: NS (Normal Saline) 0.9% 1,000 ML IV ONE (17:00)
[2025-03-29] MEDS ORDERED: METO1TAB32 PO (17:58)
[2025-03-29 18:57] VITALS: BP 130/82; TEMP 97.8; O2SAT 96
== END 2025-03-29 18:55 | disposition home or self-care (01) ==
LOC: M ED 15:10
DX: I47.10 Supraventricular tachycardia, unspecified (principal); K21.9 Gastro-esophageal reflux disease without esophagitis; I10 Essential (primary) hypertension; Z87.891 Personal history of nicotine dependence; Z79.899 Other long term (current) drug therapy

== ENCOUNTER → 2025-05-22 | Outpatient (CLI) | payer OTHER | LOC: M SLEEP HO 11:21 | PROVIDERS: ATTEND Internal Medicine Pulmonary Disease | DX: G47.33 Obstructive sleep apnea (adult) (pediatric) (principal) ==

== ENCOUNTER → 2025-05-25 | Outpatient (REF) | payer OTHER ==
[2025-05-25 19:07] LABS: C REACTIVE PROTEIN QUANTITATIV < 0.50 MG/DL (<1.0)
[2025-05-25 19:12] LABS: RHEUMATOID FACTOR QUANT 5.8 IU/ML (<14)
[2025-06-01 15:42] LABS: HLA-B27 Negative (Negative)
== END ==
LOC: M SFHCLERA 08:34
DX: M25.50 Pain in unspecified joint (principal)

== ENCOUNTER 2025-08-18 08:03 | Emergency (ER) | payer OTHER ==
[~2025-08-18] VITALS: Ht 160 cm; Wt 90.6 kg
[~2025-08-18 08:03] MED LIST changes: -SLOW1TAB3 PO; -[UNRECOGNIZED DRUG - SUPPLY]
[2025-08-18 09:01] LABS: BASO # 0.1 10^3/uL (0.0-0.2); BASO % 0.9 % (0.0-1.0); EOS # 0.7 10^3/uL (0.0-0.5); EOS % 8.2 % (0.0-3.0); LYMPH # 3.2 10^3/uL (1.5-5.0); LYMPH % 40.6 % (24.0-44.0); MONO # 0.5 10^3/uL (0.0-0.8); MONO % 6.2 % (2.0-8.0); NEUTROPHILS # 3.5 10^3/uL (1.5-8.5); NEUTROPHILS % 43.7 % (36.0-66.0); PLATELET COUNT, AUTOMATED 272 10^3/uL (150-450)
[2025-08-18 09:23] LABS: CALCIUM LEVEL 9.5 MG/DL (8.5-10.1); CARBON DIOXIDE LEVEL 27 MMOL/L (20-31); CHLORIDE LEVEL 104 MMOL/L (98-107); CK-MB VALUE MASS 1.8 NG/ML (<3.6); CREATININE FOR GFR 0.77 MG/DL (0.55-1.30); GLOMERULAR FILTRATION RATE > 90.0 (>51); MAGNESIUM LEVEL 1.7 MG/DL (1.8-2.4); POTASSIUM SERUM 4.1 MMOL/L (3.5-5.1); SODIUM LEVEL 143 MMOL/L (136-145)
[2025-08-18 09:29] LABS: CPK CREATINE PHOSPHOKINASE 133 U/L (34-145); MB/CK RELATIVE INDEX 1.35 (< OR =4)
[2025-08-18] MEDS: MAG SULF 1GM/100ML (MAG RUN) 1 GM in IV 1 EA IV ONE (09:45)
[2025-08-18] MEDS ORDERED: [UNRECOGNIZED DRUG - SUPPLY] (10:11)
[2025-08-18] MEDS ORDERED: SLOW1TAB3 PO (10:16)
[2025-08-18 10:48] VITALS: BP 122/80; TEMP 98.2; O2SAT 97
== END 2025-08-18 11:02 | disposition home or self-care (01) ==
LOC: M ED 08:03
DX: R00.2 Palpitations (principal); R00.0 Tachycardia, unspecified; I44.0 Atrioventricular block, first degree; I44.4 Left anterior fascicular block; I45.10 Unspecified right bundle-branch block; I45.81 Long QT syndrome; I10 Essential (primary) hypertension; K21.9 Gastro-esophageal reflux disease without esophagitis; F17.210 Nicotine dependence, cigarettes, uncomplicated; F10.10 Alcohol abuse, uncomplicated; Z79.899 Other long term (current) drug therapy
CPT/HCPCS: 71045; 80048; 82550; 82553; 83735; 84443; 84484; 85025; 93005; 93041; 94760; 96365; 99285; J3475

== ENCOUNTER → 2025-08-18 | Outpatient (CLI) | payer OTHER ==
[~2025-08-18] MED LIST changes: +SLOW1TAB3 PO; +[UNRECOGNIZED DRUG - SUPPLY]
== END ==
LOC: M EKG 11:56
PROVIDERS: ATTEND Emergency Medicine
DX: R00.2 Palpitations (principal)